=== PATIENT | female | born 1980 | race Two or more races ===

== ENCOUNTER 2017-11-16 13:53 | Outpatient (CLI) | payer OTHER | END 2017-11-16 15:18 | disposition home or self-care (01) | LOC: SONOGRAMA 13:53 | DX: Z34.90 Encounter for supervision of normal pregnancy, unspecified, unspecified trimester (principal); Z34.82 Encounter for supervision of other normal pregnancy, second trimester ==

== ENCOUNTER 2018-01-18 09:37 | Outpatient (CLI) | payer OTHER | END 2018-01-18 09:56 | disposition home or self-care (01) | LOC: NUCLEAR 09:37 | DX: M79.604 Pain in right leg (principal) ==